=== PATIENT | female | born 1980 | race Caucasian/White ===

== ENCOUNTER → 2018-03-17 | Outpatient (CLI) | payer OTHER | LOC: FIMAGING 09:18 | PROVIDERS: ATTEND Advanced Practice Midwife | DX: O09.521 Supervision of elderly multigravida, first trimester (principal); O09.811 Supervision of pregnancy resulting from assisted reproductive technology, first trimester; E03.9 Hypothyroidism, unspecified; Z3A.12 12 weeks gestation of pregnancy; Z98.891 History of uterine scar from previous surgery ==

== ENCOUNTER → 2018-05-21 | Outpatient (CLI) | payer OTHER | LOC: FIMAGING 07:48 | PROVIDERS: ATTEND Advanced Practice Midwife | DX: O09.522 Supervision of elderly multigravida, second trimester (principal); Z3A.21 21 weeks gestation of pregnancy ==

== ENCOUNTER 2018-09-30 07:50 | Observation (INO) | payer OTHER ==
--- NOTE | 2018-09-30 10:08 | PDGENHP ---
History and Physical History and Physical: Care: [facility] HPI: Porsha Stoll is a 38yo with IUP@ 40-2 weeks that presents to L&D with complaints of contractions since approx 3am. She states they are getting stronger and due to her living location she would like to be checked. She denies any LOF, VB. She reports +FM. EDC: 09/27/18 which is based on ETD Her is complicated by: IVF , AMA, prior c/s, +GBS Review of Systems: Constitutional: Denies any fever, chills, or fatigue HEENT: denies any visual changes, difficulty swallowing, hearing loss Cardiovascular: Denies any chest pain, palpitations, leg swelling Respiratory: denies any cough, wheezing, or shortness of breathe GI: Denies any nausea, vomiting, diarrhea, constipation : denies any dysuria, urgency, frequency, vaginal bleeding Musculoskeletal: denies any muscle or bone pain Skin: denies any rashes Neuro: denies any headache, seizures, lightheadedness, dizziness, or loss of consciousness Psychiatric: denies any depression, anxiety, or SI/HI thoughts HISTORY: Previous OB history: C/s x1 (nonreassuring FHTs) Past medical history: hypothyroid, spondylolisthesis Past surgical history: c/s, right shoulder surgery Social: Denies any alcohol, tobacco, or drug use. Family history: Not relevant Medications: PNV, levothyroxine Allergies (list reaction): sulfa-rash LABS: Rh: O+ ABS: Neg Rubella: Immune HbsAg: NR HIV: NR VDRL: NR 1hr: 107 GC: Neg Chlamydia: Neg Pap: Normal (2017) GBS: + BMI: (prepreg) 29 PHYSICAL EXAM: Constitutional: WN, A&Ox3 HEENT: normocephalic atraumatic, supple Skin: Warm, dry, intact Heart: RRR, no murmur Chest: CTA-B Abdomen: Soft, nontender, gravid SVE: 2/80/-2 Extremities: trace edema, negative homans sign Neuro: grossly normal Psych: normal affect assessment: FHT baseline 130 +accels, no decels, moderate variability Contractions: toco q 4-8 Assessment: 1) 38yo with IUP@ 40-2wks 2) TOLAC, but no evidence of labor 3) GBS + 4) Cat 1 FHR tracing Plan: 1) d/c home at this time 2) will RTO/or labor and delivery if contractions persist/increase/SROM 3) FKC and labor prec discussed Today's visit was approximately 45 min, of which >50% of visit 30 min, was spent face to face with pt on direct counseling/coordination of care.
== END 2018-09-30 10:13 | disposition home or self-care (01) ==
LOC: FLD 07:50
PROVIDERS: ADMIT Advanced Practice Midwife; ATTEND Advanced Practice Midwife
DX: O47.9 False labor, unspecified (principal); O48.0 Post-term pregnancy; O99.820 Streptococcus B carrier state complicating pregnancy; O09.813 Supervision of pregnancy resulting from assisted reproductive technology, third trimester; O34.219 Maternal care for unspecified type scar from previous cesarean delivery; O99.283 Endocrine, nutritional and metabolic diseases complicating pregnancy, third trimester; O09.523 Supervision of elderly multigravida, third trimester; E03.9 Hypothyroidism, unspecified; Z3A.40 40 weeks gestation of pregnancy
CPT/HCPCS: G0378 ×2

== ENCOUNTER 2018-09-30 17:10 | Inpatient (IN) | payer OTHER ==
[2018-09-30] MEDS ORDERED: IBUPROFEN 600 MG TAB PO PRN (18:08)
[2018-09-30] MEDS ORDERED: TERBUTALINE SULFATE 1 MG/ML VIAL IV PRN (18:08)
[2018-09-30] MEDS ORDERED: LIDOCAINE 1% 300 MG/30 ML SDV SC PRN (18:08)
[2018-09-30] MEDS ORDERED: MISOPROSTOL 200 MCG TAB PR PRN (18:08)
[2018-09-30] MEDS ORDERED: OXYTOCIN/RINGERS LACTATE 1,000 ML IV PRN (18:08)
[2018-09-30] MEDS ORDERED: EPSOM SALT 454 GM TP PRN (18:08)
[2018-09-30] MEDS ORDERED: OLIVE OIL 118 ML BTL MISC PRN (18:08)
[2018-09-30] MEDS ORDERED: LR 1,000 ML IV PRN (18:08)
[2018-09-30] MEDS ORDERED: PENICILLIN G POTASSIUM 5,000,000 UNIT in D5W 150 ML IV ONE (18:11)
--- NOTE | 2018-09-30 18:14 | PDGENHP ---
History and Physical History and Physical: Care: [facility] HPI: Porsha Stoll is a 38yo with IUP@ 40-2 weeks that presents to L&D with complaints of contractions since approx 3am. She states they are getting stronger/more intense. She is breathing through each contraction. She denies any LOF, VB. She reports +FM. EDC: 09/27/18 which is based on ETD Her is complicated by: IVF , AMA, prior c/s, +GBS Review of Systems: Constitutional: Denies any fever, chills, or fatigue HEENT: denies any visual changes, difficulty swallowing, hearing loss Cardiovascular: Denies any chest pain, palpitations, leg swelling Respiratory: denies any cough, wheezing, or shortness of breathe GI: Denies any nausea, vomiting, diarrhea, constipation : denies any dysuria, urgency, frequency, vaginal bleeding Musculoskeletal: denies any muscle or bone pain Skin: denies any rashes Neuro: denies any headache, seizures, lightheadedness, dizziness, or loss of consciousness Psychiatric: denies any depression, anxiety, or SI/HI thoughts HISTORY: Previous OB history: C/s x1 (nonreassuring FHTs) Past medical history: hypothyroid, spondylolisthesis Past surgical history: c/s, right shoulder surgery Social: Denies any alcohol, tobacco, or drug use. Family history: Not relevant Medications: PNV, levothyroxine Allergies (list reaction): sulfa-rash LABS: Rh: O+ ABS: Neg Rubella: Immune HbsAg: NR HIV: NR VDRL: NR 1hr: 107 GC: Neg Chlamydia: Neg Pap: Normal (2017) GBS: + BMI: (prepreg) 29 PHYSICAL EXAM: Constitutional: WN, A&Ox3 HEENT: normocephalic atraumatic, supple Skin: Warm, dry, intact Heart: RRR, no murmur Chest: CTA-B Abdomen: Soft, nontender, gravid SVE: 3/80/-2, BBOW Extremities: trace edema, negative homans sign Neuro: grossly normal Psych: normal affect assessment: FHT baseline 125 +accels, no decels, moderate variability Contractions: toco q 4-8 Assessment: * 38yo with IUP@ 40-2wks * TOLAC * Early labor * AMA * GBS + * Cat 1 FHR tracing Plan: * Admit to L&D * IV abx for +GBS * reassess in 4 hours * will AROM to augment or consider therapeutic rest in 4 hours * IA at this time (until active labor) * Dr Zhang aware of admit/will notify when in active labor Today's visit was approximately 30 min, of which >50% of visit 20 min, was spent face to face with pt on direct counseling/coordination of care.
[2018-09-30 19:02] LABS: PLATELET COUNT 237 10^3/uL (150-400)
[2018-09-30] MEDS ORDERED: LIDOCAINE 1% 300 MG/30 ML SDV ONE (19:40)
[2018-09-30] MEDS ORDERED: AMMONIA AROMATIC 1 EACH AMP IH ONE (19:40)
[2018-09-30] MEDS ORDERED: OLIVE OIL 118 ML BTL ONE (19:40)
[2018-09-30] MEDS ORDERED: MISOPROSTOL 200 MCG TAB ONE (19:41)
[2018-09-30] MEDS ORDERED: TERBUTALINE SULFATE 1 MG/ML VIAL ONE (19:41)
[2018-09-30] MEDS ORDERED: OXYTOCIN 10 UNIT/ML VIAL ONE (19:41)
--- NOTE | 2018-09-30 20:55 | SOAPPROG ---
SOAP Progress Note Assessment/Plan: Assessment: Made aware by OB about patient admission for . Pt is a 38 y/o female at 40 weeks and 2 days admitted for labor with worsening contractions. Patient' s is complicated by prior , AMA, and IVF. Was told that patient is in active labor from nurse at 1852 on 09/30/18, which was then confirmed by gas appliance adjuster. Plan: Will remain in-house and immediately available throughout labor for this patient. 09/30/18 20:56 Objective: Laboratory Results 09/30/18 17:24 ICD10 Worksheet Patient Problems: Problems Problem Status Onset Desires (vaginal after ) trial Acute - ICD10 Problem Qualifiers (1) Desires (vaginal after ) trial
--- NOTE | 2018-09-30 21:22 | PREANESOB ---
Obstetric Pre-Anesthesia Info - General Info : 2 Para: 1 YOVANI: 09/27/18 Gestational Age: 40 week(s) and 3 day(s) - Info Status: Full Term, Yanes FHR Pattern: Reassuring - Labor Status Cervical Dilation per last OB SVE: 3 Station per last OB SVE: -2 Indications for Labor Analgesia: Pain Control Labor Epidural: Yes Anesthesia Allergies/Adverse Reactions: Allergy/AdvReac Type Severity Reaction Status Date / Time No Known Allergies Allergy Unverified 09/30/18 10:07 Visit Medications: Generic Name Dose Route Start Last Admin Trade Name Freq PRN Reason Stop Dose Admin Lactated Ringer's 1,000 mls @ 0 mls/hr 09/30/18 18:08 09/30/18 18:45 Lr IV 10/01/18 18:07 1,000 mls PRN PRN Administration SEE PROTOCOL CONDITIONS Protocol Per Protocol Oxytocin/Lactated Ringer's 1,000 mls @ 125 mls/hr 09/30/18 18:08 Pitocin 20 Units/Lr (Premix) IV PRN PRN Post bleeding Penicillin G Potassium 2,500, 155 mls @ 155 mls/hr 09/30/18 22:00 000 unit/ Dextrose IV 10/30/18 21:59 Q4HRS STEVEN Protocol Ibuprofen 600 mg 09/30/18 18:08 Motrin PO ONCE PRN post , pain Lidocaine HCl 300 mg 09/30/18 18:08 Lidocaine Hcl 1% SC 03/29/19 18:07 ONCE PRN episiotomy Magnesium Sulfate 454 gm 09/30/18 18:08 Epsom Salt TP 03/29/19 18:07 Q1H PRN perineal discomfort Misoprostol 800 - 1,000 mcg 09/30/18 18:08 Cytotec DE ONCE PRN Vaginal Atony/Bleeding Benavides Oil 118 ml 09/30/18 18:08 Sweet Oil MISC 03/29/19 18:07 ONCE PRN perineal massage Terbutaline Sulfate 0.25 mg 09/30/18 18:08 Brethine IV 03/29/19 18:07 ONCE PRN Tachysystole Discontinued Medications Generic Name Dose Route Start Last Admin Trade Name Freq PRN Reason Stop Dose Admin Ammonia (Aromatic Spirit) Confirm 09/30/18 19:40 Ammonia Aromatic Administered 09/30/18 19:41 Dose 1 each IH .STK-MED ONE Penicillin G Potassium 5,000, 160 mls @ 160 mls/hr 09/30/18 18:11 09/30/18 18 :45 000 unit/ Dextrose IV 09/30/18 19:10 160 mls ONCE ONE Administration Protocol Lidocaine HCl Confirm 09/30/18 19:40 Lidocaine Hcl 1% Administered 09/30/18 19:41 Dose 300 mg .ROUTE .STK-MED ONE Misoprostol Confirm 09/30/18 19:41 Cytotec Administered 09/30/18 19:42 Dose 1,000 mcg .ROUTE .STK-MED ONE Benavides Oil Confirm 09/30/18 19:40 Sweet Oil Administered 09/30/18 19:41 Dose 118 ml .ROUTE .STK-MED ONE Oxytocin Confirm 09/30/18 19:41 Pitocin Administered 09/30/18 19:42 Dose 40 unit .ROUTE .STK-MED ONE Terbutaline Sulfate Confirm 09/30/18 19:41 Brethine Administered 09/30/18 19:42 Dose 1 mg .ROUTE .STK-MED ONE - Anesthesia History Response to Local Anesthetics: Normal Anesthesia & Operative History: No Prior Problems - Vital Signs Height/Weight (Nursing): Height 172.72 cm Weight 94.347 kg - Focused Exam Neck exam: FROM Mallampati Score: Class 2 Mouth exam: normal dental/mouth exam Pulmonary: no respiratory distress Cardiovascular: regular rate and rhythym Labs: 09/30/18 17:24 Patient ABO/Rh O POSITIVE 09/30/18 17:24
[2018-09-30] MEDS ORDERED: PHENYLEPHRINE HCL 100 MCG/ML SYR ONE (21:28)
[2018-09-30] MEDS ORDERED: fentaNYL 2MCG/ML/BUP 0.1% RTU 100 ML BAG EP ONE (21:30)
[2018-09-30] MEDS ORDERED: NALOXONE HCL 0.4 MG/ML INJ IVP PRN (23:05)
[2018-09-30] MEDS ORDERED: PHENYLEPHRINE HCL 100 MCG/ML SYR IVP PRN (23:05)
[2018-09-30] MEDS ORDERED: ONDANSETRON 4 MG/2 ML VIAL IVP PRN (23:05)
[2018-09-30] MEDS: PENICILLIN G POTASSIUM 2,500,000 UNIT in D5W 150 ML IV SCH (23:19)
[2018-09-30] MEDS ORDERED: fentaNYL 2MCG/ML/BUP 0.1% RTU 100 ML EP SCH (23:30)
[2018-09-30] MEDS ORDERED: LR 500 ML IV SCH (23:30)
--- NOTE | 2018-09-30 23:53 | OBPROG ---
Labor Progress Note Assessment/Plan: Assessment: [id number] with IUP@ 40-3wks Labor GBS + cat 2 F[address] Plan: cont iv abx IUPC placed at this time cont position changes reassess 2hr/PRN 09/30/18 23:50 Subjective/Intrapartum Course: 09/30/18 23:51 Pt now comfortable with ROSE. She is able to rest. She denies any pressure. She does report some cramping type of pain at left side of incision- with movement. She denies any urge to push or sharp pain. Pt was offered at c section at this time, as we cannot confirm incision pain is not start of uterine rupture. Pt declines intervention at this time. Objective: 09/30/18 17:24 Patient ABO/Rh O POSITIVE 09/30/18 17:24 - SVE Dilation (cm): 4 Effacement (%): 80 Station: -2 Membranes: SROM Amniotic Fluid Color: Clear - Contraction Pattern Assessment Current Contraction Pattern: Regular (q4-6) - FHR Assessment Yanes FHR (bpm): 135 FHR Category: 2 - Procedures Non-surgical Procedures: IUPC Oxytocin Orders Assessment - Pre-Induction/Augmentation Assessment Gestational Age: 40 week(s) and 3 day(s) ICD10 Worksheet Patient Problems: Problems Problem Status Onset Desires (vaginal after ) trial Acute
[2018-10-01] MEDS ORDERED: LORazepam 2 MG/ML INJ ONE (00:55)
--- NOTE | 2018-10-01 01:10 | OBPROG ---
Labor Progress Note Assessment/Plan: Assessment: [id number] with IUP@ 40-3wks Labor GBS + cat 2 FHR tracing ROSE in place Plan: Dr Zhang notified re: FHR tracing and incisional pain Pt desires to proceed with c/s at this time counseled on B/R/A, consents obtained by Dr Zhang Subjective/Intrapartum Course: 09/30/18 23:51 Pt now comfortable with ROSE. She is able to rest. She denies any pressure. She does report some cramping type of pain at left side of incision- with movement. She denies any urge to push or sharp pain. Pt was offered at c section at this time, as we cannot confirm incision pain is not start of uterine rupture. Pt declines intervention at this time. 10/01/18 01:09 Pt desires to proceed with c/s at this time. Dr Zhang at and pt was counseled. Objective: 09/30/18 17:24 Patient ABO/Rh O POSITIVE 09/30/18 17:24 - SVE Dilation (cm): 4 Effacement (%): 80 Station: -2 Membranes: SROM Amniotic Fluid Color: Clear - Contraction Pattern Assessment Current Contraction Pattern: Regular (q4-6) - FHR Assessment Yanes FHR (bpm): 135 FHR Pattern Variability: Moderate FHR Category: 2 - Procedures Non-surgical Procedures: IUPC Oxytocin Orders Assessment - Pre-Induction/Augmentation Assessment Gestational Age: 40 week(s) and 3 day(s) ICD10 Worksheet Patient Problems: Problems Problem Status Onset Desires (vaginal after ) trial Acute
[2018-10-01] MEDS ORDERED: LORazepam 1 MG TAB PO ONE (01:12)
[2018-10-01] MEDS ORDERED: LR 500 ML IV ONE (01:12)
[2018-10-01] MEDS ORDERED: ceFAZolin 2 GM/DEXTROSE 100 ML IV ONE (01:12)
[2018-10-01] MEDS ORDERED: morphINE PF 10 MG/10 ML INJ ONE (01:19)
--- NOTE | 2018-10-01 01:20 | OBPROG ---
Labor Progress Note Assessment/Plan: Assessment: Plan: Subjective/Intrapartum Course: 09/30/18 23:51 Pt now comfortable with ROSE. She is able to rest. She denies any pressure. She does report some cramping type of pain at left side of incision- with movement. She denies any urge to push or sharp pain. Pt was offered at c section at this time, as we cannot confirm incision pain is not start of uterine rupture. Pt declines intervention at this time. 10/01/18 01:09 Pt desires to proceed with c/s at this time. Dr Zhang at and pt was counseled. 10/01/18 01:13 i was up assessing another patient when i went in to meet the patient. baby is having intermittent late decels. overall status is reassuring. contractions are inadequate. discussed patient is not a good candidate for augmentation of labor because of the intermittent decelerations. patient is having some increased awareness around her incision. discussed it may be a pain window from epidural or related to prior c section scar. after a long discussion about options patient is electing to proceed with a repeat section. consent signed. anesthesia notified. patient had an anxiety attack which resolved. anesthesia plans to remove epidural and place spinal Objective: 09/30/18 17:24 Patient ABO/Rh O POSITIVE 09/30/18 17:24 - SVE Membranes: SROM Amniotic Fluid Color: Clear - Contraction Pattern Assessment Current Contraction Pattern: Regular (q4-6) - FHR Assessment Yanes FHR Pattern Variability: Moderate FHR Category: 2 - Procedures Non-surgical Procedures: IUPC Oxytocin Orders Assessment - Pre-Induction/Augmentation Assessment Gestational Age: 40 week(s) and 3 day(s) ICD10 Worksheet Patient Problems: Problems Problem Status Onset Desires (vaginal after ) trial Acute
[2018-10-01] MEDS ORDERED: BUPIVACAINE/DEXTROSE 7.5MG/ML 2 ML SPINAL AMP SP ONE (01:24)
[2018-10-01] MEDS ORDERED: LR 1,000 ML IV SCH (01:30)
--- NOTE | 2018-10-01 01:42 | PREANESOB ---
Obstetric Pre-Anesthesia Info - General Info : 2 Para: 1 YOVANI: 09/27/18 Gestational Age: 40 week(s) and 3 day(s) - Info Status: Full Term, Yanes FHR Pattern: Reassuring - Labor Status Cervical Dilation per last OB SVE: 4 Station per last OB SVE: -2 Amniotic Fluid Color: Clear Section History: Repeat Indications for Current Section: Arrest of Dilation, Other (Specify) ( Intolerance to Labor) Anesthesia Allergies/Adverse Reactions: Allergy/AdvReac Type Severity Reaction Status Date / Time No Known Allergies Allergy Unverified 09/30/18 10:07 Visit Medications: Generic Name Dose Route Start Last Admin Trade Name Freq PRN Reason Stop Dose Admin Diphenhydramine HCl 25 - 50 mg 09/30/18 23:05 Benadryl Injection IVP 03/29/19 23:04 Q6HRS PRN Itching Ephedrine Sulfate 10 mg 09/30/18 23:05 Ephedrine Sulfate IV 03/29/19 23:04 .Q2M PRN Hypotension Lactated Ringer's 1,000 mls @ 0 mls/hr 09/30/18 18:08 09/30/18 18:45 Lr IV 10/01/18 18:07 1,000 mls PRN PRN Administration SEE PROTOCOL CONDITIONS Protocol Per Protocol Oxytocin/Lactated Ringer's 1,000 mls @ 125 mls/hr 09/30/18 18:08 Pitocin 20 Units/Lr (Premix) IV PRN PRN Post bleeding Penicillin G Potassium 2,500, 155 mls @ 155 mls/hr 09/30/18 22:00 09/30/18 23 :19 000 unit/ Dextrose IV 10/30/18 21:59 155 mls Q4HRS STEVEN Administration Protocol Fentanyl/Bupivacaine HCl 100 mls @ 0 mls/hr 09/30/18 23:30 Fentanyl/Bupivacaine/Ns 2 Mcg/Ml 0.1% (Premix EP 10/10/18 23:29 CONT STEVEN Protocol As Directed Lactated Ringer's 500 mls @ 0 mls/hr 09/30/18 23:30 Lr IV 03/29/19 23:29 CONT STEVEN As Directed Cefazolin Sodium/Dextrose 100 mls @ 200 mls/hr 10/01/18 01:12 10/01/18 01:33 Ancef IV 10/01/18 01:41 100 mls ONCALL ONE Administration Protocol Lactated Ringer's 1,000 mls @ 125 mls/hr 10/01/18 01:30 Lr IV 10/02/18 01:29 CONT STEVEN Ibuprofen 600 mg 09/30/18 18:08 Motrin PO ONCE PRN post , pain Lidocaine HCl 300 mg 09/30/18 18:08 Lidocaine Hcl 1% SC 03/29/19 18:07 ONCE PRN episiotomy Magnesium Sulfate 454 gm 09/30/18 18:08 Epsom Salt TP 03/29/19 18:07 Q1H PRN perineal discomfort Misoprostol 800 - 1,000 mcg 09/30/18 18:08 Cytotec AZ ONCE PRN Vaginal Atony/Bleeding Naloxone HCl 0.4 mg 09/30/18 23:05 Narcan IVP 03/29/19 23:04 PRN PRN Respiratory depression [place] Oil 118 ml 09/30/18 18:08 Sweet Oil MISC 03/29/19 18:07 ONCE PRN perineal massage Ondansetron HCl 4 mg 09/30/18 23:05 Zofran IVP 10/01/18 23:04 Q4HRS PRN Nausea/Vomiting, Can't Take PO Phenylephrine HCl 100 mcg 09/30/18 23:05 Neosynephrine IVP 03/29/19 23:04 .Q2M PRN Hypotension Terbutaline Sulfate 0.25 mg 09/30/18 18:08 Brethine IV 03/29/19 18:07 ONCE PRN Tachysystole Discontinued Medications Generic Name Dose Route Start Last Admin Trade Name Freq PRN Reason Stop Dose Admin Ammonia (Aromatic Spirit) Confirm 09/30/18 19:40 Ammonia Aromatic Administered 09/30/18 19:41 Dose 1 each IH .STK-MED ONE Bupivacaine HCl/Dextrose Confirm 10/01/18 01:24 Marcaine Spinal Administered 10/01/18 01:25 Dose 2 ml SP .STK-MED ONE Fentanyl/Bupivacaine HCl Confirm 09/30/18 21:30 Fentanyl/Bupivacaine/Ns 2 Mcg/Ml 0.1% (Premix Administered 09/30/18 21:31 Dose 100 ml EP .STK-MED ONE Penicillin G Potassium 5,000, 160 mls @ 160 mls/hr 09/30/18 18:11 12/26/18 18 :45 000 unit/ Dextrose IV 09/30/18 19:10 160 mls ONCE ONE Administration Protocol Lactated Ringer's 500 mls @ 0 mls/hr 10/01/18 01:12 Lr IV 10/01/18 01:13 ONCE ONE As Directed Lidocaine HCl Confirm 09/30/18 19:40 Lidocaine Hcl 1% Administered 09/30/18 19:41 Dose 300 mg .ROUTE .STK-MED ONE Lorazepam Confirm 10/01/18 00:55 Ativan Injection Administered 10/01/18 00:56 Dose 2 mg .ROUTE .STK-MED ONE Lorazepam 2 mg 10/01/18 01:12 Ativan PO 10/01/18 01:13 ONCE ONE Misoprostol Confirm 09/30/18 19:41 Cytotec Administered 09/30/18 19:42 Dose 1,000 mcg .ROUTE .STK-MED ONE Morphine Sulfate Confirm 10/01/18 01:19 Morphine Pf 10 Mg/10 Ml Administered 10/01/18 01:20 Dose 10 mg .ROUTE .STK-MED ONE [place] Oil Confirm 09/30/18 19:40 Sweet Oil Administered 09/30/18 19:41 Dose 118 ml .ROUTE .STK-MED ONE Oxytocin Confirm 09/30/18 19:41 Pitocin Administered 09/30/18 19:42 Dose 40 unit .ROUTE .STK-MED ONE Phenylephrine HCl Confirm 09/30/18 21:28 Neosynephrine Administered 09/30/18 21:29 Dose 1,000 mcg .ROUTE .STK-MED ONE Terbutaline Sulfate Confirm 09/30/18 19:41 Brethine Administered 09/30/18 19:42 Dose 1 mg .ROUTE .STK-MED ONE - Anesthesia History Response to Local Anesthetics: Normal Anesthesia & Operative History: No Prior Problems - Vital Signs Height/Weight (Nursing): Height 172.72 cm Weight 94.347 kg - Focused Exam Neck exam: FROM Mallampati Score: Class 1 Mouth exam: normal dental/mouth exam Pulmonary: no respiratory distress Cardiovascular: regular rate and rhythym Labs: 09/30/18 17:24 Patient ABO/Rh O POSITIVE 09/30/18 17:24 - Plan Consent Signed and on Chart: Yes Patient/Guardian Understands and Agrees to Plan: Yes General Comments: Plan to D/C epidural and perform SAB for
[2018-10-01] MEDS ORDERED: PHENYLEPHRINE HCL 100 MCG/ML SYR ONE ×2 (02:05→02:56)
[2018-10-01] MEDS ORDERED: ePHEDrine SULFATE 25 MG/5 ML SYR ONE (02:05)
[2018-10-01] MEDS ORDERED: OXYCODONE/APAP 5/325 TAB PO PRN (02:22)
[2018-10-01] MEDS ORDERED: LABETALOL HCL 5 MG/ML 20 ML MDV IVP PRN (02:22)
[2018-10-01] MEDS ORDERED: MEPERIDINE 25 MG/0.5 ML AMP IVP PRN (02:22)
[2018-10-01] MEDS ORDERED: ONDANSETRON 4 MG/2 ML VIAL IVP PRN (02:22)
[2018-10-01] MEDS ORDERED: fentaNYL 100 MCG/2 ML INJ IVP PRN (02:22)
[2018-10-01] MEDS ORDERED: PHENYLEPHRINE HCL 100 MCG/ML SYR IVP PRN (02:22)
[2018-10-01] MEDS ORDERED: METOCLOPRAMIDE 10 MG/2 ML VIAL IVP PRN (02:22)
[2018-10-01] MEDS ORDERED: SIMETHICONE 80 MG TAB CHEW PO PRN (03:02)
[2018-10-01] MEDS ORDERED: oxyCODONE IR 5 MG TAB PO PRN (03:02)
[2018-10-01] MEDS ORDERED: MAGNESIUM HYDROXIDE 30 ML UDCUP PO PRN (03:02)
[2018-10-01] MEDS ORDERED: POLYETHYLENE GLYCOL 3350 17 GM PKT PO PRN (03:02)
[2018-10-01] MEDS ORDERED: BISACODYL 10 MG SUPP PR PRN (03:02)
[2018-10-01] MEDS ORDERED: LACTULOSE 20 GM/30 ML UDCUP PO PRN (03:02)
[2018-10-01] MEDS ORDERED: DOCUSATE SODIUM 100 MG CAP PO PRN (03:02)
--- NOTE | 2018-10-01 03:07 | OBDEL ---
Info Type: Repeat Presentation at Delivery: Vertex L&D Analgesia/Anesthesia Type: Spinal GBS+: Yes Antibiotic Used for + GBS: Ampicillin Intrapartum Medications: Generic Name Dose Route Start Last Admin Trade Name Freq PRN Reason Stop Dose Admin Lactated Ringer's 1,000 mls @ 0 mls/hr 09/30/18 18:08 09/30/18 18:45 Lr IV 10/01/18 18:07 1,000 mls PRN PRN Administration SEE PROTOCOL CONDITIONS Protocol Per Protocol Penicillin G Potassium 2,500, 155 mls @ 155 mls/hr 09/30/18 22:00 09/30/18 23 :19 000 unit/ Dextrose IV 10/30/18 21:59 155 mls Q4HRS STEVEN Administration Protocol Discontinued Medications Generic Name Dose Route Start Last Admin Trade Name Freq PRN Reason Stop Dose Admin Penicillin G Potassium 5,000, 160 mls @ 160 mls/hr 09/30/18 18:11 09/30/18 18 :45 000 unit/ Dextrose IV 09/30/18 19:10 160 mls ONCE ONE Administration Protocol Cefazolin Sodium/Dextrose 100 mls @ 200 mls/hr 10/01/18 01:12 10/01/18 01:33 Ancef IV 10/01/18 01:41 100 mls ONCALL ONE Administration Protocol - Hospital Course Intrapartum: 09/30/18 23:51 Pt now comfortable with ROSE. She is able to rest. She denies any pressure. She does report some cramping type of pain at left side of incision- with movement. She denies any urge to push or sharp pain. Pt was offered at c section at this time, as we cannot confirm incision pain is not start of uterine rupture. Pt declines intervention at this time. 10/01/18 01:09 Pt desires to proceed with c/s at this time. Dr Zhang at and pt was counseled. 10/01/18 01:13 i was up assessing another patient when i went in to meet the patient. baby is having intermittent late decels. overall status is reassuring. contractions are inadequate. discussed patient is not a good candidate for augmentation of labor because of the intermittent decelerations. patient is having some increased awareness around her incision. discussed it may be a pain window from epidural or related to prior c section scar. after a long discussion about options patient is electing to proceed with a repeat section. consent signed. anesthesia notified. patient had an anxiety attack which resolved. anesthesia plans to remove epidural and place spinal Indications for Delivery: Spontaneous Labor Vaginal Delivery - Labor and Delivery Onset of Contractions Date: 09/30/18 Onset of Contractions Time: 16:30 Amniotic Fluid Color: Clear Non-surgical Procedures: IUPC Operative Report - Delivery Pre-op Diagnoses: iup 40 4/7 weeks, history of prior c section, intolearance of labor, protracted labor Post-op Diagnoses: same as preop plus occiput posterior and macrosomia History of Prior Section: Yes Number of Prior Sections: 1 Nulliparous Prior to Delivery: No Indications for Prior Section: Non-reas. Status Indications for Current Section: Arrest of Dilation, Other (Specify) ( Intolerance to Labor) Procedure: Unscheduled, Low Transverse Surgeon: Alexa Zhang Erector Operator: Viola Covarrubias Anesthesiologist: Alex Tian EBL: 1000 Data YOVANI: 09/27/18 Gestational Age: 40 week(s) and 4 day(s) Yanes Delivery Date: 10/01/18 Delivery Time: 02:15 Sex of : Male [place] Weight (gm): 4706 kg Score (1 Min): 8 Score (5 Min): 9 ICD10 Worksheet Patient Problems: Problems Problem Status Onset Desires (vaginal after ) trial Acute
--- NOTE | 2018-10-01 03:30 | POSTANESTH ---
Post Anesthetic Evaluation Cardiovascular Status: Normal, Stable Respiratory Status: Normal, Stable Level of Consciousness/Mental Status: Can Participate in Eval Pain Control: Adequate, Prn Tx Ordered Nausea/Vomiting Control: Adequate, Prn Tx Ordered Complications Possibly Related to Anesthesia: None Noted
--- NOTE | 2018-10-01 04:59 | GOP ---
DATE OF OPERATION: 10/01/2018 SURGEON: Alexa Zhang DO E M ASSEMBLER: Viola Covarrubias CNM. ANESTHESIA: Spinal. ANESTHESIOLOGIST: Alex Tian MD. PREOPERATIVE DIAGNOSIS: 1. Intrauterine at 40- w/7 weeks gestation. 2. History of a previous low transverse section. 3. Failed attempted vaginal after section. 4. intolerance of labor. 5. Protracted labor. POSTOPERATIVE DIAGNOSIS: 1. Intrauterine at 40- w/7 weeks gestation. 2. History of a previous low transverse section. 3. Failed attempted vaginal after section. 4. intolerance of labor. 5. Protracted labor. 6. Occiput posterior. 7. Macrosomia. PROCEDURE PERFORMED: FINDINGS: 1. Viable 10-pound 6-ounce male infant in the occiput posterior presentation, delivered at 2:15 a.m. Apgars were 8 and 9. 2. Intact placenta with 3-vessel cord. 3. Normal ovaries, uterus, and tubes. ESTIMATED BLOOD LOSS: 1000 cc. INDICATIONS: Patient is a 38-year-old, 2, para 1-0-0-1, who was 40- w/7 weeks gestation, who has a history of previous low transverse section. She is having to have a vaginal aft er section, and has been consented and counseled on the options of vaginal after maryann jovanna section. She progressed in early labor this morning, but was not making good change, so because t he patient progressed to 3 cm dilated and she was GBS positive and postdates, options were reviewed w ith the patient for GBS prophylaxis and possible augmentation. Membranes were artificially ruptured. She was given ampicillin for GBS prophylaxis. She did ultimately request an epidural which provided a dequate pain relief. She progressed to 4 cm dilated. An intrauterine pressure catheter was placed. Sh e was having inadequate contractions; however, baby was having occasional late decelerations, so was not a good candidate for augmentation. A long discussion was had with the patient and the father of t he baby about management options. Patient elected to proceed with a repeat low transverse se ction. Risks and benefits of the procedure were reviewed with the patient and the patient was properl y consented. DESCRIPTION OF PROCEDURE: Patient was taken to the operating room with intravenous fluids in place. She was then placed on the operating room table in the dorsal supine position where after her epidura l had been removed and a spinal was placed and the spinal was working, she was placed in the dorsal s upine position with a leftward tilt. A Cortez catheter was already in place. Venodynes were placed on her lower extremities. She was then prepped and draped in a normal sterile fashion. Anesthesia was as sessed and found to be adequate. A Pfannenstiel skin incision was then made 2 fingerbreadths above th e pubic symphysis. The incision was then carried through to the underlying layer of fascia with the B ovie. The fascia was then nicked in the midline and fascial incision was extended laterally. The supe rior aspect of the fascial incision was then grasped with a Idalia, tented up, and the underlying rec tus muscle dissected off bluntly with the Bovie. Attention was then turned to the inferior aspect of the fascial incision, which in a similar fashion, was grasped with a Idalia, tented up, and the under lying rectus muscle dissected off bluntly with the Bovie. The rectus muscle was then in the midline. The peritoneum was then identified, tented up, and entered sharply with the Metzenbaum scis sors. The incision was extended superiorly and inferiorly with excellent visualization of the bladder . The bladder blade was then inserted. The vesicouterine peritoneum was then identified, tented up, a nd entered sharply with the Metzenbaum scissors. The incision was extended laterally and the bladder flap was created digitally. The lower uterine segment was noted to be very thin, a scalpel was used t o incise the lower uterine segment, and the hysterotomy was extended laterally. The 's head was noted to be in the occiput posterior presentation and not low or well engaged within the pelvis. The infant's head was then delivered through the incision. The remainder of the 10-pound 6-ounce male in mary was then delivered without difficulty. Delayed cord clamping x1 minute was performed. The cord w as then clamped x2 and cut, and the cord blood was obtained. The infant was [facility]. Intact placenta with 3-vessel cord delivered without difficulty. The uteru s was then exteriorized and cleared of all clots and debris, and wrapped in a moist laparotomy sponge . There was bleeding to be noted from the right uterine artery on the right side. An 0 Vicryl stitch was used to achieve hemostasis. Four clamps were used to grasp the edges of the hysterotomy and an 0 Vicryl stitch was used in a running locked fashion to close the hysterotomy. A second 0 Vicryl stitch was used to imbricate the uterine incision. Hemostasis was assured. The ovaries, uterus, and tubes w ere unremarkable. The abdomen was cleared of all clots and debris. The uterus was then returned to [facility] patient's abdomen where the gutters were evaluated, and 1 additional clot was removed. The hysterot swapna remained hemostatic. The bladder was remote from the hysterotomy closure site. Peritoneum was the n grasped with hemostats and reapproximated with 3-0 Vicryl in a running fashion. The rectus muscle n aturally reapproximated and was not sutured. The fascia was closed with 0 Vicryl in a running fashion . Shyanne tissue was reapproximated with 3-0 Vicryl in a running fashion. Subcuticular tissue was reap proximated with 3-0 Vicryl in a running fashion. Sponge, lap, and needle counts were correct x2. Suzan morocho was transported to recovery room in stable condition. /[id number]/MODL
[2018-10-01] MEDS: KETOROLAC 30 MG/1 ML SDV IVP SCH ×4 (05:01→23:50)
[2018-10-01] MEDS: ACETAMINOPHEN 325 MG TAB PO SCH ×3 (05:15→16:58)
[2018-10-01] MEDS: IBUPROFEN 600 MG TAB PO SCH ×4 (05:15→21:15)
[2018-10-01] MEDS: PENICILLIN G POTASSIUM 2,500,000 UNIT in D5W 150 ML IV SCH ×2 (05:17→06:42)
[2018-10-01] MEDS ORDERED: PROMETHAZINE HCL IV PRN (08:04)
[2018-10-01] MEDS ORDERED: NS IV PRN (08:04)
--- NOTE | 2018-10-01 08:57 | OBPP ---
Progress Note Assessment/Plan: Assessment:POD #0 s/p R-C/S (failed ), doing well but some low urine output and nausea Plan: Currently has 25mg of phenergan in her 1 L IV fluids - will bolus 500ml, then return to 125ml/ hour. Encourage ambulation this afternoon, and consider dc of urinary catheter if urine output increases. Cont with Zofran for nausea, could also try scopolamine patch prn. Coni Wong MD, FACOG [facility] 10/01/18 09:34 Subjective/ Course: 10/01/18 09:38 Pt doing well. Is having some nausea. Pain well controlled. No dyspnea, no chest pain. Min lochia. going well. Objective: 09/30/18 17:24 Patient ABO/Rh O POSITIVE 09/30/18 17:24 Temp Pulse Resp BP Pulse Ox 36.4 C 66 19 107/61 99 10/01/18 07:05 10/01/18 07:05 10/01/18 07:05 10/01/18 07:05 10/01/18 07:05 Intake and Output 09/30/18 10/01/18 10/01/18 17:59 05:59 17:59 Intake Total 2550 Output Total 1400 100 Balance 1150 -100 Weight 94.347 kg Intake: IV Intake (ml) 2550 Output: Urine (ml) 400 Catheter 400 Estimated Blood Loss (ml) 1000 Emesis (ml) 100 Other: Number of Emesis 2 Occurrences Currently - 100ml of dark concentrated urine in bag - over about 3.5 hours gen - pleasant, NAD, fatigued CV - RRR chest - CTAB abd - soft, + BS, fundus firm at u, dressing -c/d/i ext - trace edema, SCDs on an running, no calf tenderness Uterine Position/Fundal Height: At Umbilicus Uterine Tone: Firm
[2018-10-01] MEDS: SENNOSIDES/DOCUSATE SODIUM TAB PO SCH ×2 (11:40→19:43)
[2018-10-02] MEDS: IBUPROFEN 600 MG TAB PO SCH ×3 (06:13→18:04)
[2018-10-02] MEDS: ACETAMINOPHEN 325 MG TAB PO SCH ×4 (06:13→18:04)
--- NOTE | 2018-10-02 10:26 | OBPP ---
Progress Note Assessment/Plan: Assessment: 1) s/p RCS, failed POD #1 - pt is stable 2) Anemia - pt is asymptomatic 3) Hypothyroidism - stable on meds Plan: Continue routine post-op care Encourage ambulation Will start iron support prn Plan for d/c in am 10/0310/02/18 10:26 Subjective/ Course: 10/01/18 09:38 Pt doing well. Is having some nausea. Pain well controlled. No dyspnea, no chest pain. Min lochia. going well. 10/02/18 10:29 Pt seen and examined. Pain is overall controlled with po meds. Pt is OOB, inocencio regular diet, voiding and BM x1 this am. Denies any f/c/n/v/CP or SOB. BF going well so far-supplemented with donor milk secondary to size. Objective: 10/02/18 06:20 Patient ABO/Rh O POSITIVE 09/30/18 17:24 Temp Pulse Resp BP Pulse Ox 36.7 C 83 19 104/58 L 96 10/02/18 08:00 10/02/18 08:00 10/02/18 08:00 10/02/18 08:00 10/02/18 08:00 Uterine Position/Fundal Height: Umbilicus -2 Uterine Tone: Firm Physical Exam - Physical Exam General Appearance: WD/WN, alert, no apparent distress Respiratory: lungs clear, normal breath sounds Cardiac/Chest: regular rate, rhythm Abdomen: normal bowel sounds, non-tender, soft, flatus (+), incision (C/D/I with dressing in place), dressing (C/D/I) Extremities: non-tender, normal inspection Skin: normal color, warm/dry Neuro/Psych: alert, normal mood/affect, oriented x 3
[2018-10-02] MEDS: SENNOSIDES/DOCUSATE SODIUM TAB PO SCH (10:44)
[2018-10-02] MEDS: FERRO-SEQUELS 65 MG TAB.ER PO SCH ×2 (11:59→21:25)
--- NOTE | 2018-10-02 19:05 | PDPAINCON ---
Pain Management Consultation Patient referred by : Leatha - Subjective Pain at rest (/10): 2 Pain with activity (/10): 4 Pain is: low, well controlled Side effects include: nausea Activity: able to ambulate - Objective Technique: spinal opioid Catheter site: clean, dry, intact Sensory and motor exam: block has resolved, no apparent ill effects Vital signs: stable (Pt. reports excellent pain pain all day yesterday. However , had with some nausea requiring IV therapy also. Today, pain is somewhat worse but still tolerable. No c/o residual weakness/numbness, or headache; urinating without difficulty.)
--- NOTE | 2018-10-02 21:58 | OBPP ---
Progress Note Assessment/Plan: Assessment: [id number] s/p repeat c/s POD#1 Plan: routine post op care ambulation support PRN anticipate d/c home 10/04 Subjective/ Course: 10/01/18 09:38 Pt doing well. Is having some nausea. Pain well controlled. No dyspnea, no chest pain. Min lochia. going well. 10/02/18 10:29 Pt seen and examined. Pain is overall controlled with po meds. Pt is OOB, inocencio regular diet, voiding and BM x1 this am. Denies any f/c/n/v/CP or SOB. BF going well so far-supplemented with donor milk secondary to size. 10/02/18 17:30 Pt doing well, she denies any pain at this time. she is taking only ibuprofen and tylenol. She is voiding without difficulty, reports +BM. She denies any CP, SOB. She is and using donor milk for supplementation. FOB and her mother are supportive. Objective: 10/02/18 06:20 Patient ABO/Rh O POSITIVE 09/30/18 17:24 Temp Pulse Resp BP Pulse Ox 36.6 C 97 18 123/74 H 96 10/02/18 16:00 10/02/18 16:00 10/02/18 16:00 10/02/18 16:00 10/02/18 16:00 Uterine Position/Fundal Height: Umbilicus -1, Midline Uterine Tone: Firm Physical Exam - Physical Exam General Appearance: WD/WN, alert, no apparent distress Neck: normal inspection Respiratory: lungs clear, normal breath sounds Cardiac/Chest: regular rate, rhythm Abdomen: non-tender, soft, flatus, incision (C/D/I, healing well) Extremities: pedal edema Skin: normal color, warm/dry Neuro/Psych: alert, normal mood/affect, oriented x 3
[2018-10-03] MEDS: IBUPROFEN 600 MG TAB PO SCH ×5 (03:07→23:15)
[2018-10-03] MEDS: ACETAMINOPHEN 325 MG TAB PO SCH ×5 (03:07→23:15)
[2018-10-03] MEDS: SENNOSIDES/DOCUSATE SODIUM TAB PO SCH ×3 (03:18→23:15)
--- NOTE | 2018-10-03 08:26 | OBPP ---
Progress Note Assessment/Plan: Assessment: [id number] s/p repeat c/s POD#2 Plan: routine post op care ambulation support PRN anticipate d/c home tomorrow 10/03/18 08:23 Subjective/ Course: 10/01/18 09:38 Pt doing well. Is having some nausea. Pain well controlled. No dyspnea, no chest pain. Min lochia. going well. 10/02/18 10:29 Pt seen and examined. Pain is overall controlled with po meds. Pt is OOB, inocencio regular diet, voiding and BM x1 this am. Denies any f/c/n/v/CP or SOB. BF going well so far-supplemented with donor milk secondary to size. 10/02/18 17:30 Pt doing well, she denies any pain at this time. she is taking only ibuprofen and tylenol. She is voiding without difficulty, reports +BM. She denies any CP, SOB. She is and using donor milk for supplementation. FOB and her mother are supportive. 10/03/18 08:23 Pt doing well, she was able to sleep 3 hrs straight last night. She feels rested. She is OOB/ambulating without difficulty. She is voiding and reports BM yesterday. She does report some mild "burning" type pain on her left side, but tolerable with medication. She desires d/c home tomorrow. Circ to be done today. Objective: 10/02/18 06:20 Patient ABO/Rh O POSITIVE 09/30/18 17:24 Temp Pulse Resp BP Pulse Ox 36.7 C 94 18 119/74 95 10/02/18 20:00 10/02/18 20:00 10/02/18 20:00 10/02/18 20:00 10/02/18 20:00 Uterine Position/Fundal Height: Umbilicus -1, Midline Uterine Tone: Firm Physical Exam - Physical Exam General Appearance: WD/WN, alert, no apparent distress Abdomen: non-tender, soft, flatus, incision (c/d/i) Skin: normal color, warm/dry Neuro/Psych: alert, normal mood/affect, oriented x 3
[2018-10-03] MEDS: FERRO-SEQUELS 65 MG TAB.ER PO SCH ×2 (08:54→23:15)
[2018-10-04] MEDS: IBUPROFEN 600 MG TAB PO SCH ×2 (05:14→11:18)
[2018-10-04] MEDS: ACETAMINOPHEN 325 MG TAB PO SCH ×2 (05:14→11:18)
[2018-10-04 08:33] VITALS: BP 122/79
[2018-10-04] MEDS: FERRO-SEQUELS 65 MG TAB.ER PO SCH (10:10)
[2018-10-04] MEDS: SENNOSIDES/DOCUSATE SODIUM TAB PO SCH (10:10)
--- NOTE | 2018-10-04 11:11 | OBGCSDC ---
General Delivery Information - General Info : 2 Para: 2 Abortions: 0 Type: Repeat L&D Analgesia/Anesthesia Type: Epidural, Spinal, Nitrous Admission Date: 09/30/18 Labs: Patient ABO/Rh O POSITIVE 09/30/18 17:24 Hct 29.1 % (38.0-47.0) L 10/02/18 06:20 - Hospital Course Intrapartum: 09/30/18 23:51 Pt now comfortable with ROSE. She is able to rest. She denies any pressure. She does report some cramping type of pain at left side of incision- with movement. She denies any urge to push or sharp pain. Pt was offered at c section at this time, as we cannot confirm incision pain is not start of uterine rupture. Pt declines intervention at this time. 10/01/18 01:09 Pt desires to proceed with c/s at this time. Dr Zhang at and pt was counseled. 10/01/18 01:13 i was up assessing another patient when i went in to meet the patient. baby is having intermittent late decels. overall status is reassuring. contractions are inadequate. discussed patient is not a good candidate for augmentation of labor because of the intermittent decelerations. patient is having some increased awareness around her incision. discussed it may be a pain window from epidural or related to prior c section scar. after a long discussion about options patient is electing to proceed with a repeat section. consent signed. anesthesia notified. patient had an anxiety attack which resolved. anesthesia plans to remove epidural and place spinal : 10/01/18 09:38 Pt doing well. Is having some nausea. Pain well controlled. No dyspnea, no chest pain. Min lochia. going well. 10/02/18 10:29 Pt seen and examined. Pain is overall controlled with po meds. Pt is OOB, inocencio regular diet, voiding and BM x1 this am. Denies any f/c/n/v/CP or SOB. BF going well so far-supplemented with donor milk secondary to size. 10/02/18 17:30 Pt doing well, she denies any pain at this time. she is taking only ibuprofen and tylenol. She is voiding without difficulty, reports +BM. She denies any CP, SOB. She is and using donor milk for supplementation. FOB and her mother are supportive. 10/03/18 08:23 Pt doing well, she was able to sleep 3 hrs straight last night. She feels rested. She is OOB/ambulating without difficulty. She is voiding and reports BM yesterday. She does report some mild "burning" type pain on her left side, but tolerable with medication. She desires d/c home tomorrow. Circ to be done today. 10/04/18 11:29 S) Pt doing well, reports min pain and bleeding. she is ambulating and voiding without difficulty. States burning pain is improved- tolerable. She is . She desires discharge home today. O) VSS, afebrile constitutional: WNF, A&Ox3 HEENT: normocephalic, atraumatic, supple Heart: RRR, No murmur Chest: CTA-B Breasts: soft, nontender, not engorged, nipples Abdomen: Soft, nontender Incision: C/D/I, well approximated, no erythema, no drainage Uterus: Firm at U-2 Lochia: Minimal rubra Perineum: Intact Extremities: Trace edema, and negative Joshua's sign Neuro: Grossly normal A) 38 -year-old S/P repeat c/s; failed PPD#3 P) Discharge home today Continue Pelvic rest x6wks Discussed danger signs (infection, preeclampsia, depression, heavy bleeding, etc ) RTO in 2/4/6 weeks Vaginal - Diagnosis Amniotic Fluid Color: Clear - Procedures Non-surgical Procedures: IUPC - Delivery Providers Surgeon: Alexa Zhang Imaging System Administrator: Viola Covarrubias Anesthesiologist: Alex Tian - Delivery Number of Prior Sections: 1 Indications for Current Section: Arrest of Dilation, Other (Specify) ( Intolerance to Labor) Non-surgical Procedures: IUPC Surgical Procedures: Unscheduled, Low Transverse EBL: 1000 Data YOVANI: 09/27/18 Gestational Age: 41 week(s) and 0 day(s) Yanes Delivery Date: 10/01/18 Delivery Time: 02:15 Sex of Infant: Male Geronimo Weight (gm): 4706 g Score (1 Min): 8 Score (5 Min): 9 Discharge Information - Discharge Information Prescriptions: oxyCODONE IR [Oxycodone Ir (*)] 5 mg PO Q4HRS PRN #10 tab PRN Reason: Pain, Severe Ibuprofen [Motrin (*)] 600 mg PO Q6H #30 tab Condition: Good
== END 2018-10-04 11:40 | disposition home or self-care (01) | DRG 788 ==
LOC: FLD 17:10 → FOB 10-01 06:29
PROVIDERS: ADMIT Advanced Practice Midwife; ATTEND Advanced Practice Midwife
PROC: 10D00Z1 Extraction of Products of Conception, Low, Open Approach (ICD-10-PCS; principal; 2018-10-01)
DX: O66.41 Failed attempted vaginal birth after previous cesarean delivery (principal); O76 Abnormality in fetal heart rate and rhythm complicating labor and delivery; O34.219 Maternal care for unspecified type scar from previous cesarean delivery; Z37.0 Single live birth; Z3A.40 40 weeks gestation of pregnancy; O99.824 Streptococcus B carrier state complicating childbirth; O62.0 Primary inadequate contractions; O36.63X0 Maternal care for excessive fetal growth, third trimester, not applicable or unspecified
CPT/HCPCS: J0690; J1885; J2060; J2274; J2370; J2405; J2540; J2550; J2590; J3105